=== PATIENT | female | born 1975 | race Hispanic/Latino ===

== ENCOUNTER 2016-07-15 08:16 | Inpatient (IN) | payer SELFPAY ==
[2016-07-15] VITALS (19 sets, daily range): BP systolic 118–163; BP diastolic 54–89
[~2016-07-15] VITALS: Ht 147.3 cm; Wt 79.4 kg
--- NOTE | 2016-07-15 08:27 | NUR ---
PT CAME TO TRIAGE TO BE EVALUATED FOR POSSIBLE INDUCTION. EDC , WITH AMA, LATE PNC, OBESITY AND LOW LYING PLACENTA THAT HAS BEEN RESOLVED. PT DID NOT SEE MFM DUE TO COST, UNABLE TO PAY FOR VISIT PER PT. HEIGHT AND WEIGHT OBTAINED, URINE PROVIDED FOR TESTING, CHANGED INTO GOWN, ASSISTED TO BED, EFM STARTED. INITIAL ASSESSMENT DONE.
--- NOTE | 2016-07-15 08:38 | NUR ---
DR. JENNINGS AT BEDSIDE, DISCUSSING PLAN OF CARE WITH PT, SVE DONE, %/-2, CERVIX IS POSTERIOR AND SOFT PER MD. ORDERS RECEIVED.
[2016-07-15 08:41] LABS: BARBITURATES NEGATIVE (NEGATIVE); COCAINE NEGATIVE (NEGATIVE); METHADONE NEGATIVE (NEGATIVE); OXCYCODONE NEGATIVE (NEGATIVE); TETRAHYDROCANNABIONOL NEGATIVE (NEGATIVE); TRICYLIC ANTIDEPRESSANTS NEGATIVE (NEGATIVE); URINE BILIRUBIN - DIPSTICK NEGATIVE (NEGATIVE); URINE BLOOD DIPSTICK NEGATIVE (NEGATIVE); URINE CLARITY CLEAR; URINE COLOR YELLOW; URINE GLUCOSE - DIPSTICK NEGATIVE (NEGATIVE); URINE KETONE NEGATIVE (NEGATIVE); URINE LEUK ESTERASE NEGATIVE (NEGATIVE); URINE NITRITE - DIPSTICK NEGATIVE (Negative); URINE PH 6.5 (4.5-8.0); URINE PROTEIN - DIPSTICK NEGATIVE (NEG-TRACE); URINE SPECIFIC GRAVITY 1.025; URINE UROBILINOGEN - DIPSTICK 0.2 E.U./dL (0.2)
[2016-07-15] MEDS ORDERED: PRE-NATAL PO (08:45)
[2016-07-15] MEDS ORDERED: FERR SULFATE325 MG PO (08:46)
--- NOTE | 2016-07-15 09:25 | NUR ---
18G IV STARTED ON RIGHT WRIST, LABS DRAWN. PT TOLERATED PROCEDURE WELL.
--- NOTE | 2016-07-15 09:42 | NUR ---
PITOCIN STARTED PER PROTOCOL. DISCUSSED PLAN OF CARE WITH PT, INSTRUCTED PT ON PITOCIN MEDICATION, SIDE EFFECTS WELL LABOR REVIEW AND WHAT TO EXPECT. ALSO EDUCATED PT ON PAIN MEDICATION. PT VERBALIZED UNDERSTANDING.
[2016-07-15 09:54] LABS: HEMATOCRIT 36.6 % (37.0-47.0); HEMOGLOBIN 12.1 g/dl (12.0-16.0); IMMATURE GRANULOCYTES 0.5 % (0.0-1.0); MEAN CELL VOLUME 88.4 fL CALC (80.0-100.0); MEAN CORPUSCULAR HGB 29.2 pG CALC (26.0-32.0); MEAN CORPUSCULAR HGB CONC 33.1 g/L CALC (32.0-36.0); NEUT# 5.69 thou/uL (2.00-7.15); RED BLOOD COUNT 4.14 mill/uL (4.20-5.60); RED CELL DISTRI WIDTH 15.5 % (11.5-15.5)
[2016-07-15 10:05] LABS: ALKALINE PHOSPHATASE 148 u/l (38-126); ANION GAP 12 (6-22 (CALC)); BILIRUBIN, TOTAL 0.2 mg/dL (0.0-1.4); BUN 11 mg/dL (7-17); BUN/CREATININE RATIO 17 (12-20 (CALC)); CARBON DIOXIDE 21 mmol/l (22-30); CHLORIDE 109 mmol/l (95-108); CREATININE 0.6 mg/dL (0.5-1.0); GFR > 60 ML/MIN (>=60 (CALC)); GFR FOR AFR.AMER. > 60 ML/MIN (>=60 (CALC)); GLUCOSE 70 mg/dL (65-105); POTASSIUM 4.3 mmol/l (3.5-5.1); SGOT/AST 20 u/l (14-36); SGPT/ALT 21 u/l (9-52); SODIUM 137 mmol/l (137-146); TOTAL PROTEIN 6.4 g/dL (6.3-8.2)
--- NOTE | 2016-07-15 10:15 | NUR ---
PT RESTING QUIELTY, SIGNIFICANT OTHER AT BEDSIDE. DENIES ANY PAIN OR CONTRACTIONS, REPOSITIONED TO SEMI FOWLERS, AND REPOSITIONED TOCO WELL. WILL CONTINUE TO MONITOR.
--- NOTE | 2016-07-15 10:30 | NUR ---
PT UP TO BATHROOM, VOIDED 300ML, THEN TO RECLINER CHAIR.
--- NOTE | 2016-07-15 10:45 | NUR ---
PITOCIN INCREASED TO 6MU/MIN PER ORDER.
--- NOTE | 2016-07-15 10:50 | NUR ---
PT REQUESTING TO GO TO BATHROOM TO HAVE A BM, FEELS "PRESSURE". ASSISTED FROM CHAIR TO BED, SVE DONE, UNCHANGED, THEN ASSISTED PT TO BATHROOM.
--- NOTE | 2016-07-15 10:53 | NUR ---
PT UNABLE TO HAVE A BM, VOIDED 200ML, BACK TO RECLINER CHAIR.
--- NOTE | 2016-07-15 11:18 | NUR ---
PT STANDING AT BEDSIDE AT THIS TIME, STARTED TO HAVE SOME CONTRACTIONS, RATE PAIN 2 OUT OF 10. WILL CONTINUE TO MONITOR.
--- NOTE | 2016-07-15 11:30 | NUR ---
TOCO REPOSITIONED SEVERAL TIMES, CONTRACTIONS ARE PRESENT, BUT MILD AND DIFFICULT TO SEE IN THE MONITOR. PT WAS GIVEN JENNIFER BUTTON TO JENNIFER EACH CONTRACTION WELL. WILL MONITOR.
--- NOTE | 2016-07-15 11:45 | NUR ---
PT STANDING UP IN ROOM, PAIN IS 3 OUT OF 10, ASSISTING TO JENNIFER CONTRACTIONS WITH JENNIFER BUTTON, PALPATED MILD. PITOCIN INCREASED TO 8MU/MIN.
--- NOTE | 2016-07-15 12:10 | NUR ---
PT TO THE BATHROOM, VOIDED 100ML YELLOW URINE, THEN BACK TO STANDING UP AT BEDSIDE. TOCO EQUIPMENT CHANGED TO A DIFFERENT ONE IN ATTEMPT TO EDGE BONDER CONTRACTIONS BETTER. CONTRACTIONS PALPATE MILD, PT CONTINUES TO JENNIFER WHEN SHE FEELS CONTRACTIONS.
--- NOTE | 2016-07-15 12:11 | NUR ---
PT UP TO BATHROOM TO VOID.
--- NOTE | 2016-07-15 12:23 | NUR ---
TOCO PICKING UP CONTRACTIONS, INSTRUCTED PT SHE MAY STOP MARKING THEM.
--- NOTE | 2016-07-15 12:50 | NUR ---
PT WAS STANDING UP AT BEDSIDE, NOW BACK TO BED ON LEFT TILT POSITION, DENIES ANY NEEDS. SIGNIFICANT OTHER REMAINS AT BEDSIDE.
--- NOTE | 2016-07-15 13:00 | NUR ---
PITOCIN INCREASED TO 10MU/MIN AT THIS TIME. PT RESTING IN LEFT TILT POSITION.
--- NOTE | 2016-07-15 13:41 | NUR ---
PT UP TO BATHROOM, VOIDED 200ML, THEN BACK TO BED ON LEFT TILT POSITION. RATES PAIN 3 OUT OF 10. SIGNIFICANT OTHER REMAINS AT BEDSIDE.
--- NOTE | 2016-07-15 14:08 | NUR ---
PT REPOSITIONED TO RECLINER AT THIS TIME.
--- NOTE | 2016-07-15 14:15 | NUR ---
PT UP TO BATHROOM AT THIS TIME.
--- NOTE | 2016-07-15 14:19 | NUR ---
PT BACK TO CHAIR AFTER VOIDING 250ML CLEAR YELLOW URINE.
--- NOTE | 2016-07-15 14:37 | NUR ---
PT STARTING FEELING MORE PAIN, REQUESTING PAIN MEDICATION. RATES PAIN 6 OUT OF 10, AND STARTED TO BREATH WITH CONTRACTION. SVE DONE, 5/%/-1. WILL MOVE PT TO BIRTHING ROOM.
--- NOTE | 2016-07-15 14:46 | NUR ---
PT MOVED TO BIRTHING ROOM #1 AMBULATORY, ASSISTED TO BED, REPOSITIONED TO LEFT LATERAL.
--- NOTE | 2016-07-15 14:53 | NUR ---
NUBAIN GIVEN DURING CONTRACTION.
--- NOTE | 2016-07-15 14:55 | NUR ---
DR. JENNINGS AT BEDSIDE, SVE DONE.
--- NOTE | 2016-07-15 15:15 | NUR ---
PT UP TO VOID, THEN BACK TO BED, HIGH FOWLERS.
--- NOTE | 2016-07-15 15:25 | NUR ---
PT C/O INCREASE PRESSURE, WANTING TO PUSH. DR. JENNINGS AT BEDSIDE, SVE DONE, COMPLETE, +2. PREPARING FOR DELIVERY.
--- NOTE | 2016-07-15 15:27 | NUR ---
PT STARTED TO PUSH WITH EACH CONTRACTION.
--- NOTE | 2016-07-15 15:34 | NUR ---
AROM FOR SMALL AMOUNT CLEAR FLUID, PER MD.
--- NOTE | 2016-07-15 15:36 | NUR ---
OF MALE INFANT, SEE DELIVERY ROOM RECORD. EXTRA 10 UNITS OF PITOCIN ADDED TO CURRENT BAG (THAT HAD 10 UNITS) FOR A TOTAL OF 20 UNITS, AND RUNNING AT BOLUS RATE PER MD'S REQUEST.
--- NOTE | 2016-07-15 15:39 | NUR ---
PLACENTA OUT. SEE FUNDAL CHECKS.
--- NOTE | 2016-07-15 16:45 | NUR ---
PT ASSISTED TO BATHROOM, VOIDED 300ML, PERICARE DONE, PANTIES AND PADS PLACED, GOWN CHANGED. ASSISTED TO WHEELCHAIR AND MOVED TO ROOM 203. ORIENTED TO NEW ROOM. TEACHING DONE, VERBALIZED UNDERSTANDING. IVF WITH PITOCIN RUNNING AT 150ML/H. SIGNIFICANT OTHER AT BEDSIDE.
--- NOTE | 2016-07-15 17:30 | NUR ---
FUNDAL CHECK DONE, MODERATE LOCHIA, ASSISTED PT TO BATHROOM, VOIDED, FUNDUS FIRM AT UMBILICUS AFTER VOIDING. ENCOURAGED PT TO VOID OFTEN. ALSO IVF DONE INFUSING, SALINE LOCKED AT THIS TIME.
--- NOTE | 2016-07-15 18:30 | NUR ---
VS/BLEEDING STABLE, MEDICATED WITH MOTRIN FOR CRAMPING PAIN. SIGNIFICANT OTHER AT BEDSIDE. DENIES ANY OTHER NEEDS.
--- NOTE | 2016-07-15 19:20 | NUR ---
PT AWAKE- SITTING UP IN BED, HOLDING INFANT. PT DENIES ANY CONCERNS AT THIS TIME, VSS, NO DISTRESS NOTED, ENCOURAGED TO CALL OUT FOR ANY NEEDS OR CONCERNS- VERBALIZES UNDERSTANDING, WILL CONT TO MONITOR.
--- NOTE | 2016-07-15 23:43 | NUR ---
pain level of 6 on scale of 1 to 10. patient medicated with motrin 600mg by mouth for pain. Will monitor for follow up relief.
--- NOTE | 2016-07-16 | NUR ---
PT AWAKE- LYING IN BED, C/O PAIN- MEDICATED ORDERED, DENIES ANY FURTHER NEEDS OR CONCERNS AT THIS TIME.
[2016-07-16 04:13] VITALS: BP 118/55
[2016-07-16 06:23] LABS: HEMATOCRIT 34.2 % (37.0-47.0); HEMOGLOBIN 11.4 g/dl (12.0-16.0); IMMATURE GRANULOCYTES 0.5 % (0.0-1.0); MEAN CELL VOLUME 87.9 fL CALC (80.0-100.0); MEAN CORPUSCULAR HGB 29.3 pG CALC (26.0-32.0); MEAN CORPUSCULAR HGB CONC 33.3 g/L CALC (32.0-36.0); NEUT# 8.24 thou/uL (2.00-7.15); RED BLOOD COUNT 3.89 mill/uL (4.20-5.60); RED CELL DISTRI WIDTH 15.4 % (11.5-15.5)
--- NOTE | 2016-07-16 06:55 | NUR ---
PT AWAKE LYING IN BED, C/O PAIN- MEDICATED ORDERED, DENIES ANY FURTHER CONCERNS AT THIS TIME, REENCOURAGED TO CALL OUT FOR ANY NEEDS OR CONCERNS- VERBALIZES UNDERSTANDING.
--- NOTE | 2016-07-16 07:00 | NUR ---
REPORT RECEIVED, TAKING OVER CARE OF PATIENT. PT SITTING IN BED, AWAKE. S/O AT BEDSIDE. DENIES ANY NEEDS AT THIS TIME.
[2016-07-16 07:35] VITALS: BP 110/54
[2016-07-16] MEDS ORDERED: IBUPROFEN600 MG PO (13:30)
--- NOTE | 2016-07-16 15:14 | NUR ---
IN ROOM WITH INFANT. OFFERS NO CONCERNS. GETTING READY FOR DISCHARGE. S/O AT BEDSIDE.
--- NOTE | 2016-07-16 18:40 | NUR ---
PT LEFT FLOOR VIA WHEELCHAIR WITH NURSE ESCORTKamla RN. TO PRIVATE VEHICLE TO HOME. PT IN STABLE CONDITION WITH SPOUSE AT SIDE.
== END 2016-07-16 18:40 | disposition home or self-care (01) | DRG 775 ==
LOC: OBOP 08:16 → OB 09:00
PROC: 10E0XZZ Delivery of Products of Conception, External Approach (ICD-10-PCS; principal; 2016-07-15)
PROC: 3E033VJ Introduction of Other Hormone into Peripheral Vein, Percutaneous Approach (ICD-10-PCS; 2016-07-15)
DX: O80 Encounter for full-term uncomplicated delivery (principal); Z37.0 Single live birth; Z3A.39 39 weeks gestation of pregnancy